=== PATIENT | female | born 1965 | race Caucasian/White ===

== ENCOUNTER 2017-06-29 08:40 | Emergency (ER) | payer OTHER, MEDICAID ==
[~2017-06-29] VITALS: Ht 160 cm; Wt 98.2 kg
[2017-06-29] MEDS ORDERED: IBUP-2071 PO (08:49)
[2017-06-29] MEDS ORDERED: HYDR-305 PO (08:49)
[2017-06-29] MEDS ORDERED: CYCLOBENZAPRINE HCL 10 MG TABLET PO ONE (10:00)
[2017-06-29] MEDS ORDERED: KETOROLAC TROMETHAMINE 30 MG/ML VIAL IVP ONE (10:00)
[2017-06-29] MEDS ORDERED: ACETAMINOPHEN 500 MG TABLET PO ONE (11:00)
[2017-06-29] MEDS ORDERED: MORPHINE SULFATE 10 MG/ML SYRINGE IVP ONE (11:00)
[2017-06-29 12:26] VITALS: BP 148/80
== END 2017-06-29 12:27 | disposition home or self-care (01) ==
LOC: EMS 08:41
DX: G89.29 Other chronic pain (principal); M54.5 Low back pain; M19.90 Unspecified osteoarthritis, unspecified site; Z79.899 Other long term (current) drug therapy
CPT/HCPCS: 96374; 96375; 99284; J1885; J2270